=== PATIENT | female | born 1990 | race Two or more races ===

== ENCOUNTER 2024-04-11 16:59 | Emergency (ER) | payer BC, SELFPAY ==
[2024-04-11 17:01] VITALS: BP 103/74
[2024-04-11 17:19] LABS: % Basophils 0.9 % (0-2); % Eosinophils 2.4 % (0-6); % Immature Granulocytes 0.2 % (0-0.5); % Lymphocytes 29.2 % (20.5-51.1); % Monocytes 5.3 % (1.7-9.3); Absolute Basophils 0.1 10^3/uL (0-0.2); Absolute Eosinophils 0.2 10^3/uL (0-0.7); Absolute Lymphocytes 2.8 10^3/uL (1.2-3.4); Absolute Monocytes 0.5 10^3/uL (0.1-0.6); Hematocrit 32.3 % (37.0-47.0); Mean Corp Hgb Conc. 34.1 g/dL (33.0-37.0); Mean Corpuscular Hgb 26.8 pg (27.0-31.0); Mean Corpuscular Volume 78.6 fL (81.0-99.0); Mean Platelet Volume 9.8 fL (7.4-10.4); Nucleated Red Blood Cells % 0 %; Platelet Count 340 10^3/uL (130-400); Red Blood Cell Count 4.11 10^6/uL (4.20-5.40); White Blood Cell Count 9.7 10^3/uL (4.8-10.8)
[2024-04-11 17:31] LABS: Urine Albumin Trace (Neg - Trace); Urine Bilirubin 1+ (Negative); Urine Character Clear (Clear); Urine Color Yellow; Urine Glucose Negative (Negative); Urine Ketone Negative (Negative); Urine Leukocyte Negative (Negative); Urine Nitrite Negative (Negative); Urine Occult Blood Negative (Negative); Urine Specific Gravity 1.015 (<1.030); Urine Urobilinogen 2+ (Neg - 1+); Urine pH 6.5 (5.0-9.0)
[2024-04-11 17:37] LABS: HCG, Serum Qualitative Screen Negative
[2024-04-11 17:40] LABS: ALT (SGPT) 16 U/L (0-35); AST (SGOT) 22 U/L (14-36); Albumin 4.4 g/dl (3.5-5.0); Alkaline Phosphatase 48 U/L (38-126); Blood Urea Nitrogen 16 mg/dl (7-17); Calcium 9.8 mg/dl (8.4-10.2); Carbon Dioxide 20 mmol/L (22-30); Chloride 104 mmol/L (98-107); Glucose 118 mg/dl (70-99); Potassium 4.4 mmol/L (3.5-5.1); Sodium 138 mmol/L (135-145); Total Bilirubin 0.5 mg/dl (0.2-1.3); Total Protein 7.4 g/dl (6.3-8.2); eGFR > 60.00
--- NOTE | 2024-04-11 20:02 | ED.GENMED ---
History of Present Illness
<Oumar Barrett MD, Resident - Last Filed: 04/11/24 22:10>
General
Chief Complaint: Urinary Symptoms
Source: patient, records and family
Time Seen by Provider: 04/11/24 19:23
Travel History
Have you traveled to any high risk areas for coronavirus over the past 14 days?: No
Have you had any contact with someone who has COVID-19?: No
Do you have any symptoms of coronavirus? Fever > 100 degrees, chills, cough, shortness of breath, sore throat, loss of taste or smell, muscle aches, or headache?: No
History of Present Illness
History of Present Illness:
Dorys Barbosa, 34-year-old female with a history of pyelonephritis, diverticulitis and type II diabetes mellitus on semaglutide, has had burning micturition, right flank and lower abdominal-pelvic pain for the last couple of days. She noted
increased frequency and burning 10-14 days ago. Outpatient UA was notable for occult blood and suggestive of an acute urinary tract infection; she was started on nitrofurantoin . Her symptoms improved initially but then got worse. Now with flank
pain, nausea and vomiting. She has had intermittent fevers and feels fatigued. She has noted blood when she uses the restroom intermittently but is unsure if that has been from urine - she has hemorrhoids.
Past History
<Oumar Barrett MD, Resident - Last Filed: 04/11/24 22:10>
Past History
ED Past Medical History: Other (diverticulitis; pyelonephritis; type II diabetes mellitus; hyperlipidemia; post-traumatic stress disorder; hemorrhoids)
ED Past Surgical History: Other (wisdom tooth extraction)
Social History
Tobacco: Smoker
Alcohol: Occasional
Drug: None
Review of Systems
<Oumar Barrett MD, Resident - Last Filed: 04/11/24 22:10>
Review of Systems
All Other Systems: Not applicable
Constitutional: Reports fever (subjective and intermittent)
EENT: Reports no symptoms
Respiratory: Reports no symptoms
Cardiac: Reports no symptoms
ABD/GI: Reports abdominal pain (lower), nausea and vomiting; Denies diarrhea or constipated
: Reports dysuria, frequency, flank pain (right), difficulty voiding, urgency and discharge; Denies incontinence, bleeding or dark urine
Musculoskeletal: Reports no symptoms
Skin: Reports no symptoms
Neurological: Reports no symptoms
Endocrine: Reports no symptoms
Hematologic/Lymphatic: Reports no symptoms
Psychiatric: Reports no symptoms
Phy Exam
<Oumar Barrett MD, Resident - Last Filed: 04/11/24 22:10>
General Physical Exam
General Presentation: well appearing and no apparent distress
General Skin: warm and dry
General Habitus: normal
General Mental: alert
General Hydration: appears well hydrated
ENT Exam
ENT Exam: EOMI, pharynx normal, neck supple and normocephalic
Eye Exam
Eye Exam: PERRL, cornea clear and conjunctiva normal
Cardiovascular Exam
Cardiovascular Exam: regular rate/rhythm, no edema, no murmur and normal peripheral pulses
Pulmonary Exam
Pulmonary Exam: lungs clear, no respiratory distress, no rales, no crackles, no rhonchi, no stridor, no wheezing and no cough
Gastrointestinal Exam
Gastrointestinal Exam: normal bowel sounds, soft, no organomegaly, no pulsatile mass, non distended, cva tenderness (right) and tender (lower abdomen and pelvic)
Neurological Exam
Neurological Exam: alert, oriented x3, no motor deficits and speech normal
Musculoskeletal Exam
Musculoskeletal Exam: full ROM and no edema
Skin Exam
Skin Exam: normal color, warm/dry, no rash and no petechia
Psychiatric Exam
Psychiatric Exam: normal mood/affect
Course
<Oumar Barrett MD, Resident - Last Filed: 04/11/24 22:10>
Orders/Labs/Results
Orders:
Orders
04/11/24 17:07
Test Result ONCE
04/11/24 17:13
Complete Blood Count/With Diff Urgent
Comprehensive Metabolic Panel Urgent
HCG, Serum Qualitative Screen Urgent
04/11/24 17:17
Urinalysis Reflex To Culture Urgent
Date Specimen was Collected: 04/11/24
Time Specimen was Collected: 17:17
04/11/24 19:54
0.9% Sodium Chloride 1000 ml [Nss] 1,000 ml IV BOLUS
Ketorolac [Toradol] 15 mg IV NOW STA
Ondansetron Injectable [Zofran] 4 mg IV NOW STA
04/11/24 20:02
CT Abd/pelvis W Iv Cont Urgent
Comment:
Reason For Exam: right flank pain; lower abdominal tenderness
Abnormal Lab Results
04/11/24 04/11/24
17:13 17:17
RBC 4.11 L 10^6/uL
(4.20-5.40)
Hgb 11.0 L g/dL
(12.0-16.0)
Hct 32.3 L %
(37.0-47.0)
MCV 78.6 L fL
(81.0-99.0)
MCH 26.8 L pg
(27.0-31.0)
Carbon Dioxide 20 L mmol/L
(22-30)
Glucose 118 H mg/dl
(70-99)
Urine Bilirubin 1+ A
(Negative)
Urine Urobilinogen 2+ A
(Neg - 1+)
04/11/24 17:13
04/11/24 17:13
Vital Signs
Initial and Last Documented VS:
Initial Vital Signs
Temp Pulse Resp BP Pulse Ox
98.4 F 81 16 103/74 98
04/11/24 17:01 04/11/24 17:01 04/11/24 17:01 04/11/24 17:01 04/11/24 17:01
Last Documented Vital Signs
Temp Pulse Resp BP Pulse Ox
98.4 F 79 16 92/61 100
04/11/24 17:01 04/11/24 21:44 04/11/24 21:44 04/11/24 21:44 04/11/24 21:44
<Ad Schrader, - Last Filed: 04/11/24 21:18>
Orders/Labs/Results
Orders:
Orders
04/11/24 17:07
Test Result ONCE
04/11/24 17:13
Complete Blood Count/With Diff Urgent
Comprehensive Metabolic Panel Urgent
HCG, Serum Qualitative Screen Urgent
04/11/24 17:17
Urinalysis Reflex To Culture Urgent
Date Specimen was Collected: 04/11/24
Time Specimen was Collected: 17:17
04/11/24 19:54
0.9% Sodium Chloride 1000 ml [Nss] 1,000 ml IV BOLUS
Ketorolac [Toradol] 15 mg IV NOW STA
Ondansetron Injectable [Zofran] 4 mg IV NOW STA
04/11/24 20:02
CT Abd/pelvis W Iv Cont Urgent
Comment:
Reason For Exam: right flank pain; lower abdominal tenderness
Abnormal Lab Results
04/11/24 04/11/24
17:13 17:17
RBC 4.11 L 10^6/uL
(4.20-5.40)
Hgb 11.0 L g/dL
(12.0-16.0)
Hct 32.3 L %
(37.0-47.0)
MCV 78.6 L fL
(81.0-99.0)
MCH 26.8 L pg
(27.0-31.0)
Carbon Dioxide 20 L mmol/L
(22-30)
Glucose 118 H mg/dl
(70-99)
Urine Bilirubin 1+ A
(Negative)
Urine Urobilinogen 2+ A
(Neg - 1+)
04/11/24 17:13
04/11/24 17:13
Vital Signs
Initial and Last Documented VS:
Initial Vital Signs
Temp Pulse Resp BP Pulse Ox
98.4 F 81 16 103/74 98
04/11/24 17:01 04/11/24 17:01 04/11/24 17:01 04/11/24 17:01 04/11/24 17:01
Last Documented Vital Signs
Temp Pulse Resp BP Pulse Ox
98.4 F 79 16 92/61 100
04/11/24 17:01 04/11/24 21:44 04/11/24 21:44 04/11/24 21:44 04/11/24 21:44
<Ad Schrader DO - Last Filed: 04/11/24 21:18>
MDM/Problems Addressed
MDM/Problems Addressed:
Dysuria, flank pain, ovarian cyst
<Ad Schrader DO - Last Filed: 04/11/24 21:18>
*Radiology
Radiology exam reviewed: radiology read reviewed (No free air)
*Pulse Oximetry
Patient hypoxic: no
*Critical Care Note
Total Time (30-74mins, 75-104mins- exclusive of procedures): Not Applicable
Data Reviewed
Source: patient
Further Testing Considered But Not Given:
Considered ultrasound but no concern at this time for ovarian torsion
ED Attending Note
<Oumar Barrett MD, Resident - Last Filed: 04/11/24 22:10>
-
Portions of this chart may have been created with voice recognition software.� Occasional wrong word or��sound alike� substitutions may have occurred due to the inherent limitations of voice recognition software.
<Ad Schrader DO - Last Filed: 04/11/24 21:18>
ED Attending Note
Patient seen and examined by attending physician: Yes
I performed a history and physical exam of patient and discussed management with resident, I reviewed resident's note and agree with documented findings and plan of care.: Yes
ED Attending Note:
34-year-old female presents with 2 to 3 weeks of dysuria and pressure with urinating. Has been on several courses of antibiotics. Also tested positive for BV at some point [place]. Patient states her symptoms have persisted but today developed
flank pain on the right. She states she had difficulty lifting up her knees. No shortness of breath. No fevers. No vomiting. No rash. Exam: Abdomen with mild lower tenderness no CVA tenderness, no fever, no respiratory distress. Assessment
plan: Check CT, labs. Low suspicion for infection given findings on urinalysis. Do not suspect pyelonephritis.
Discharge Plan
Departure
Patient Disposition: Home (Routine Discharge)
Date of Disposition: 04/11/24
Time of Disposition: 22:05
Patient with high blood pressure during this ER visit?: No
Condition: Good
Discharge Problem:
Gastroparesis, Bladder irritation
Instructions: Gastroparesis (delayed gastric emptying), Bladder Irritants
Prescriptions:
No Action
atorvastatin 40 mg Tablet
40 mg PO QPM
phentermine 30 mg Capsule
30 mg PO DAILY
phendimetrazine tartrate 35 mg Tablet
35 mg PO DAILY
trazodone 100 mg Tablet
100 mg PO HS
ondansetron 4 mg Tablet,Disintegrating
4 mg PO Q12H PRN (Reason: nausea)
spironolactone 50 mg Tablet
50 mg PO DAILY
Ozempic 2 mg/dose (8 mg/3 mL) Pen Injector
2 mg SC QWEEK
Referrals:
Harvinder Abreu MD [Active] - Call in 1-3 days for appt
Maty Shepherd MD [Family Provider] -
Interventions
Interventions:
*Risk Screen - Suicide Last Done: 04/11/24 17:06
*General Assessment Last Done: 04/11/24 20:06
*Neglect/Abuse Screening Last Done: 04/11/24 17:06
ED- Fall Risk Assessment Last Done: 04/11/24 20:36
*ED COVID-19 Vaccine History Last Done: 04/11/24 20:06
ED-Female Genitourinary Assessment Last Done: 04/11/24 20:36
Discharge Date and Time
Print Language: [place]
[2024-04-11 20:05] VITALS: BMI 30.8
--- NOTE | 2024-04-11 20:11 | EDRN ---
Pt had a uti last month that went away with cranberry juice. UTI returned this month and pt had 5 day course abx then a second abx for 3 days. Pt went back to her physician because burning and pain did not go away. Repeat urinalysis around Apr
2-3 which was improved so pt put on another abx which she finished yesterday. Pt was also put on an antifungal which pt did not start. Today, pain with urination returned. Pt had a swab taken and it is positive for rosalie glabrata and BVA2. Pt
says she had a milky discharge. Pt says all symptoms have returned - frequency, burning 'like there is hot sauce on there' and sometimes nothing comes out. Pt having frequent stimulation/pain. Pt notes burning for 30 minutes after she urinates.
Pt has R side abd pain/flank pain. Pain comes and goes. Fever intermittently. Chills but gone with tylenol - last dose last night.
[2024-04-11] MEDS: ZOFRAN 4 MG IV (20:24)
[2024-04-11] MEDS: NSS 1000 IV (20:24)
[2024-04-11] MEDS: TORADOL 15 MG IV (20:26)
[2024-04-11 20:31] VITALS: BP 109/73
[2024-04-11 21:44] VITALS: BP 92/61
== END 2024-04-11 22:57 | disposition home or self-care (01) ==
LOC: EMR 16:59
PROVIDERS: Emergency Medicine; EMERGENCY PHYSICIAN Emergency Medicine; FAMILY PHYSICIAN Family Medicine
DX: E11.43 Type 2 diabetes mellitus with diabetic autonomic (poly)neuropathy (principal); K31.84 Gastroparesis; N32.89 Other specified disorders of bladder; E78.00 Pure hypercholesterolemia, unspecified; F17.200 Nicotine dependence, unspecified, uncomplicated; Z87.19 Personal history of other diseases of the digestive system
CPT/HCPCS: 99284; 74177; 80053; 81003; 84703; 85025; Q9967

== ENCOUNTER 2024-08-05 16:23 | Emergency (ER) | payer BC, SELFPAY ==
[2024-08-05 16:34] VITALS: BP 132/91
--- NOTE | 2024-08-05 16:40 | ED.GENMED ---
ED Provider Triage
-
Patient seen by provider in Triage?: Seen in Triage
Attestation: A medical screening examination has been initiated by a qualified medical provider. Based on the assessment performed at this time, it has been determined that an emergent medical condition may exist and the patient has been informed
that further medical evaluation and possible additional diagnostic testing may be needed.
HPI: 34yoF here with sore throat and L sided neck swelling. Sick since last week. Started with sore throat yesterday and woke up this morning with swelling. Feels like a 'charley horse' in her neck. No fevers. Sent in by urgent care.
GENERAL: Alert , in no apparent distress
EYE: No visual abnormalities.
NECK: Trachea midline
ENT: No visible abnormalities.
LUNGS: No acute respiratory distress
NEUROLOGICAL: Alert and oriented
SKIN: Skin intact. No visible changes.
MUSCULOSKELETAL: Moving extremities normally
PSYCH: Normal and appropriate interaction.
This is a medical evaluation conducted in person to initiate diagnostic evaluation and provide initial therapeutics. Please see further documentation by the treating clinician.
L submandibular swelling and some trismus noted on exam. No uvular deviation and patient tolerating oral secretions. CBC, CMP, HCG, and CT neck ordered.
History of Present Illness
General
Chief Complaint: Throat Problem
Source: patient
Exam Limitations: none
Time Seen by Provider: 08/05/24 18:08
History of Present Illness
History of Present Illness:
34yoF with a history of type 2 diabetes presenting for evaluation of a sore throat and neck pain. Patient's family member had the flu last week and she had some URI symptoms. She started to have a sore throat yesterday and woke up this morning
with swelling on the left side of her neck. Patient states it feels like she has a charley horse in her left jaw area. Pain radiates to the left ear. She is able to swallow but states it is difficult. She also feels like her voice is hoarse.
She was seen in urgent care prior to arrival and was diagnosed with a bacterial infection and told to go to the ED for evaluation. She denies any fevers or dental pain.
Past History
Past History
ED Past Medical History: Other (diverticulitis; pyelonephritis; type II diabetes mellitus; hyperlipidemia; post-traumatic stress disorder; hemorrhoids)
ED Past Surgical History: Other (wisdom tooth extraction)
Social History
Tobacco: Smoker
Alcohol: Occasional
Drug: None
Phy Exam
General Physical Exam
General Presentation: well appearing and no apparent distress
General Skin: warm and dry
General Habitus: normal
General Mental: alert
ENT Exam
ENT Exam: TM's normal and other (There is tenderness and swelling to the L submandibular area. No erythema/skin changes noted. Bilateral tonsillar erythema noted. No exudates. Uvula midline. Voice is mildly hoarse. Tolerating oral secretions without
difficulty. )
Pulmonary Exam
Pulmonary Exam: no respiratory distress
Neurological Exam
Neurological Exam: alert
Hector Coma Scale
Eye Opening: Spontaneous
Verbal Response: Oriented
Motor Response: Obeys Commands
GCS Total Score: 15
Skin Exam
Skin Exam: normal color and warm/dry
Psychiatric Exam
Psychiatric Exam: normal mood/affect
Course
Orders/Labs/Results
Orders:
Orders
08/05/24 16:39
CT Neck With Iv Contrast Urgent
Comment:
Reason For Exam: L submandibular swelling, sore throat
Test Result ONCE
08/05/24 16:43
Complete Blood Count/With Diff Urgent
Comprehensive Metabolic Panel Urgent
HCG, Serum Qualitative Screen Urgent
08/05/24 18:33
0.9% Sodium Chloride 500 ml [Nss] 500 ml IV BOLUS
Dexamethasone Sod Phosphate [Decadron] 10 mg IV NOW STA
Ketorolac [Toradol] 15 mg IV NOW STA
08/05/24 19:56
Rapid Strep Group A Urgent
SERGIO Source: Throat/Pharynx
Specimen Description:
Date Specimen was Collected: 08/05/24
Time Specimen was Collected: 19:54
Abnormal Lab Results
08/05/24
16:43
RBC 4.17 L 10^6/uL
(4.20-5.40)
Hgb 11.1 L g/dL
(12.0-16.0)
Hct 34.1 L %
(37.0-47.0)
MCH 26.6 L pg
(27.0-31.0)
MCHC 32.6 L g/dL
(33.0-37.0)
08/05/24 16:43
08/05/24 16:43
Vital Signs
Initial and Last Documented VS:
Initial Vital Signs
Temp Pulse Resp BP Pulse Ox
98.2 F 78 18 132/91 98
08/05/24 16:34 08/05/24 16:34 08/05/24 16:34 08/05/24 16:34 08/05/24 16:34
Last Documented Vital Signs
Temp Pulse Resp BP Pulse Ox
98.2 F 77 18 127/94 100
08/05/24 18:46 08/05/24 18:46 08/05/24 18:46 08/05/24 18:46 08/05/24 18:46
MDM/Problems Addressed
Differential Diagnosis Includes:
34yoF here with L sided neck pain/swelling, sore throat radiating to the L ear. Sent in by urgent care. No f/c. VSS. She is non-toxic appearing. There is L submandibular tenderness and swelling on exam. No uvular deviation noted. Differential
diagnosis includes but is not limited to: sialoadenitis, sialolithiasis, Cirilo's angina, lymphadenopathy
Initial ED plan: Patient initially seen in triage. Labs unremarkable including normal white count. CT neck pending. Will also check strep testing. IV Decadron and Toradol ordered for symptoms.
*Critical Care Note
Total Time (30-74mins, 75-104mins- exclusive of procedures): Not Applicable
Update Note
Update Note:
CT shows findings highly suggestive of left submandibular gland sialoadenitis. No visualized calculus or evidence of abscess. Patient is symptomatically improved after medications and she is able to open and close her mouth much easier. Pain also
improved. No purulence able to be expressed. Low clinical suspicion of bacterial sialoadenitis although she does report foul taste in her mouth so we will cover with Augmentin. Supportive care discussed including NSAIDs, warm compresses, massage,
and sour candies. She was advised to follow-up with ENT. ED return precautions discussed including fevers. Patient in agreement with plan and was discharged in stable condition.
ED Attending Note
-
Portions of this chart may have been created with voice recognition software.� Occasional wrong word or��sound alike� substitutions may have occurred due to the inherent limitations of voice recognition software.
Discharge Plan
Departure
Patient Disposition: Home (Routine Discharge)
Date of Disposition: 08/05/24
Time of Disposition: 20:28
Patient with high blood pressure during this ER visit?: No
Discharge Problem:
Sialoadenitis of submandibular gland
Instructions: Salivary Gland Infection (DC)
Prescriptions:
New
amoxicillin-pot clavulanate 875-125 mg tablet
1 tab PO BID Qty: 14 0RF
No Action
atorvastatin 40 mg Tablet
40 mg PO QPM
phentermine 30 mg Capsule
30 mg PO DAILY
phendimetrazine tartrate 35 mg Tablet
35 mg PO DAILY
trazodone 100 mg Tablet
100 mg PO HS
ondansetron 4 mg Tablet,Disintegrating
4 mg PO Q12H PRN (Reason: nausea)
spironolactone 50 mg Tablet
50 mg PO DAILY
Ozempic 2 mg/dose (8 mg/3 mL) Pen Injector
2 mg SC QWEEK
Referrals:
Maty Shepherd MD [Family Provider] -
Nik Velazquez MD [Active] -
Activity Restrictions/Additional Instructions:
Take antibiotics as prescribed. Drink plenty of fluids. Gently massage area, apply warm compresses, and eat sour candies to help with swelling. Take ibuprofen 600mg every 6 hours as needed for pain.
Please follow-up with ENT. Return to the ER with any worsening symptoms or fevers.
Interventions
Interventions:
*Risk Screen - Suicide Last Done: 08/05/24 16:34
*General Assessment Last Done: 08/05/24 18:46
*Neglect/Abuse Screening Last Done: 08/05/24 16:34
*ED COVID-19 Vaccine History Last Done: 08/05/24 18:46
ED-EENT Assessment Last Done: 08/05/24 18:50
ED- Pulmonary Assessment Last Done: 08/05/24 18:50
Discharge Date and Time
Print Language: DJIBOUTIAN
[2024-08-05 16:55] LABS: % Basophils 0.5 % (0-2); % Eosinophils 1.6 % (0-6); % Immature Granulocytes 0.1 % (0-0.5); % Lymphocytes 35.8 % (20.5-51.1); % Monocytes 6.7 % (1.7-9.3); % Neutrophils 55.3 % (42.2-75.2); Absolute Eosinophils 0.1 10^3/uL (0-0.7); Absolute Lymphocytes 2.8 10^3/uL (1.2-3.4); Absolute Monocytes 0.5 10^3/uL (0.1-0.6); Absolute Neutrophils 4.3 10^3/uL (1.4-6.5); Hematocrit 34.1 % (37.0-47.0); Hemoglobin 11.1 g/dL (12.0-16.0); Mean Corp Hgb Conc. 32.6 g/dL (33.0-37.0); Mean Corpuscular Hgb 26.6 pg (27.0-31.0); Mean Corpuscular Volume 81.8 fL (81.0-99.0); Mean Platelet Volume 9.4 fL (7.4-10.4); Nucleated Red Blood Cells % 0 %; Platelet Count 285 10^3/uL (130-400); Red Blood Cell Count 4.17 10^6/uL (4.20-5.40); White Blood Cell Count 7.7 10^3/uL (4.8-10.8)
[2024-08-05 17:11] LABS: ALT (SGPT) 17 U/L (0-35); AST (SGOT) 23 U/L (14-36); Albumin 4.4 g/dl (3.5-5.0); Alkaline Phosphatase 68 U/L (38-126); Blood Urea Nitrogen 11 mg/dl (7-17); Calcium 9.3 mg/dl (8.4-10.2); Carbon Dioxide 28 mmol/L (22-30); Chloride 100 mmol/L (98-107); Glucose 82 mg/dl (70-99); Potassium 3.7 mmol/L (3.5-5.1); Sodium 136 mmol/L (135-145); Total Bilirubin 0.5 mg/dl (0.2-1.3); Total Protein 7.4 g/dl (6.3-8.2); eGFR > 60.00
[2024-08-05 18:04] LABS: HCG, Serum Qualitative Screen Negative
[2024-08-05 18:46] VITALS: BP 127/94; BMI 32.5
[2024-08-05] MEDS: NSS 500 IV (18:56)
[2024-08-05] MEDS: TORADOL 15 MG IV (18:56)
[2024-08-05] MEDS: DECADRON 10 MG IV (18:58)
== END 2024-08-05 20:57 | disposition home or self-care (01) ==
LOC: EMR 16:23
PROVIDERS: Physician Assistant; EMERGENCY PHYSICIAN Student in an Organized Health Care Education/Training Program; FAMILY PHYSICIAN Family Medicine
DX: K11.20 Sialoadenitis, unspecified (principal); R07.0 Pain in throat; R22.1 Localized swelling, mass and lump, neck; E11.9 Type 2 diabetes mellitus without complications; E78.00 Pure hypercholesterolemia, unspecified; F17.200 Nicotine dependence, unspecified, uncomplicated; Z87.19 Personal history of other diseases of the digestive system
CPT/HCPCS: 99284; 96374; 96375; 96361; 70491; 80053; 84703; 85025; 87070; 87880; Q9967